=== PATIENT | female | born 1935 | race Caucasian/White ===

== ENCOUNTER 2017-07-29 09:08 | Day surgery (SDC) | payer MEDICARE, OTHER ==
[~2017-07-29 09:08] MED LIST: Lactated Ringers 1,000 ML IV SCH
[2017-07-29] MEDS ORDERED: Propofol 200 MG/20 ML SDV ONE ×2 (11:39→11:59)
[2017-07-29] MEDS ORDERED: Bupivacaine 0.5% 30 ML SDV ONE (11:43)
[2017-07-29] MEDS ORDERED: ceFAZolin 1 GM Vial ONE (11:48)
[2017-07-29 13:20] VITALS: BP 159/73
--- NOTE | 2017-07-30 08:21 | OR ---
PREOPERATIVE DIAGNOSIS: Right posterior back lipoma. POSTOPERATIVE DIAGNOSIS: Right posterior back lipoma. PROCEDURE PERFORMED: Excision of right posterior back lipoma, size is 8 cm. COMPLICATIONS: None. ESTIMATED BLOOD LOSS: Less than 5 mL. DRAINS: None. SPECIMENS: Lipoma. PROCEDURE IN DETAILS: This was done in the operating room, sedation was given per anesthesia. The right posterior back was prepped with sterile manner. Local anesthetic 1% lidocaine was used to make incision over the lipoma. Cautery was used to go through the subcutaneous tissue. The lipoma was located over the fascia of the scapula. It was enucleated. Closed with 3-0 Vicryl interrupted sutures and 4-0 Vicryl running subcuticular suture and Dermabond. The patient . BKD: 07/29/2017 12:21:02 MODL: 07/29/2017 14:02:28 /[id number]
== END 2017-07-29 13:45 ==
LOC: VM.SDS 09:08
PROVIDERS: ATTEND Surgery
DX: D17.1 Benign lipomatous neoplasm of skin and subcutaneous tissue of trunk (principal); F41.9 Anxiety disorder, unspecified; I10 Essential (primary) hypertension; F32.9 Major depressive disorder, single episode, unspecified; G30.9 Alzheimer's disease, unspecified; F02.80 Dementia in other diseases classified elsewhere, unspecified severity, without behavioral disturbance, psychotic disturbance, mood disturbance, and anxiety; M85.80 Other specified disorders of bone density and structure, unspecified site; E89.0 Postprocedural hypothyroidism; M19.90 Unspecified osteoarthritis, unspecified site; G50.0 Trigeminal neuralgia; Z77.22 Contact with and (suspected) exposure to environmental tobacco smoke (acute) (chronic); Z79.82 Long term (current) use of aspirin; Z79.899 Other long term (current) drug therapy; Z88.8 Allergy status to other drugs, medicaments and biological substances
CPT/HCPCS: 00300; 21931; 88304; J0690; J2704; J7120

== ENCOUNTER 2024-10-11 18:40 | Emergency (ER) | payer MEDICARE, OTHER, MEDICAID ==
[2024-10-11 20:53] VITALS: BP 177/84; PULSE 57
== END 2024-10-11 20:20 ==
LOC: VM.ED 18:40
DX: S00.03XA Contusion of scalp, initial encounter (principal); S00.81XA Abrasion of other part of head, initial encounter; I10 Essential (primary) hypertension; E78.00 Pure hypercholesterolemia, unspecified; E03.9 Hypothyroidism, unspecified; Z88.8 Allergy status to other drugs, medicaments and biological substances; Z79.82 Long term (current) use of aspirin; Z79.890 Hormone replacement therapy; Z79.899 Other long term (current) drug therapy; Z90.710 Acquired absence of both cervix and uterus; W01.198A Fall on same level from slipping, tripping and stumbling with subsequent striking against other object, initial encounter
CPT/HCPCS: 70450; 99284